=== PATIENT | male | born 1955 | race Two or more races ===

== ENCOUNTER 2021-08-22 06:47 | Day surgery (SDC) | payer OTHER | END 2021-08-22 12:35 | disposition home or self-care (01) | LOC: AMB-ENDOS 06:47 | PROVIDERS: ATTEND Colon & Rectal Surgery | DX: D37.4 Neoplasm of uncertain behavior of colon (principal); D12.2 Benign neoplasm of ascending colon; I10 Essential (primary) hypertension; Z20.822 Contact with and (suspected) exposure to COVID-19 ==

== ENCOUNTER 2023-04-28 08:00 | Outpatient (CLI) | payer OTHER ==
[~2023-04-28] VITALS: Ht 180.3 cm; Wt 98.0 kg
[2023-04-28] MEDS ORDERED: AMLODIPINE BESYL5 MG PO (08:16)
[2023-04-28] MEDS ORDERED: PLAVIX75 MG PO (08:17)
[2023-04-28] MEDS ORDERED: CHILDREN'S ASPI81 MG PO (08:17)
[2023-04-28] MEDS ORDERED: ATACAND HCT 161 EACH PO (08:17)
[2023-04-28 08:39] LABS: HEMATOCRIT 43.1 % (39.0-48.0); HEMOGLOBIN 14.9 g/dL (13-16.00); MEAN CELL VOLUME 85.3 fL (80.0-100.00); MEAN CORPUSCULAR HEMOGLOBIN 29.5 pg (27.00-32.0); MEAN CORPUSCULAR HGB CONC 34.5 g/dl (32.0-36.0); PLATELET COUNT 234 K/uL (150-450); RED BLOOD COUNT 5.05 M/uL (4.00-6.00); RED CELL DISTRIBUTION WIDTH 14.2 % (11.5-14.5)
[2023-04-28 08:40] LABS: URINE APPEARANCE Clear; URINE BILIRRUBIN Negative (NEGATIVE); URINE BLOOD Negative; URINE COLOR Yellow; URINE GLUCOSE Negative (NEGATIVE); URINE LEUKOCYTE Negative; URINE NITRATE Negative; URINE PROTEIN Negative (NEGATIVE); URINE UROBILINOGEN 0.2 E.U./dl
[2023-04-28 08:45] LABS: URINE BACTERIA 21.4 uL (0.0-1933); URINE EPITHELIAL CELLS 1.5 uL (0.0-38.8); URINE WBC 6.7 uL (0.0-23.2)
[2023-04-28 08:49] LABS: URINE RBC 1.1 uL (0.0-20.8)
[2023-04-28 09:02] LABS: INR 0.94; PARTIAL THROMBOPLASTIN TIME 26.4 SECONDS (22.0-34.0); PROTHROMBIN TIME 9.9 SECONDS (9.0-11.5)
[2023-04-28 09:12] LABS: ALBUMIN 3.7 gm/dL (3.4-5.0); BILIRUBIN TOTAL 0.36 mg/dL (0.3-1.2); CALCIUM 8.8 mg/dL (8.5-10.1); CREATININE SERUM 1.14 mg/dL (0.70-1.30); GFR 64.07; GLOBULINA 3.4 G/DL (2.4-3.5); POTASSIUM 4.12 mEq/L (3.5-5.1); TOTAL PROTEIN 7.1 gm/dL (6.4-8.2)
== END 2023-04-28 08:05 | disposition home or self-care (01) ==
LOC: LAB 08:00 → EDSTATUS 05-02 07:45 → SURG 05-02 07:45
PROVIDERS: ATTEND Colon & Rectal Surgery
DX: K63.5 Polyp of colon (principal); R59.0 Localized enlarged lymph nodes

== ENCOUNTER 2024-07-28 10:06 | Day surgery (SDC) | payer OTHER ==
[~2024-07-28 10:06] MED LIST: AMLODIPINE BESYL5 MG PO; ATACAND HCT 161 EACH PO; CHILDREN'S ASPI81 MG PO; PLAVIX75 MG PO
[2024-07-28] MEDS ORDERED: fentaNYL CITRATE 50 MCG/ML AMPUL IV PUSH ONE (14:45)
[2024-07-28] MEDS ORDERED: MIDAZOLAM HCL 2 MG/2 ML VIAL IV ONE (14:45)
[2024-07-28] MEDS ORDERED: DIPHENHYDRAMINE HCL 50 MG/ML VIAL 1ML IV ONE (14:45)
[2024-07-28] MEDS ORDERED: ONDANSETRON HCL 2 MG/ML VIAL IV ONE (14:45)
== END 2024-07-28 16:50 | disposition home or self-care (01) ==
LOC: AMB-ENDOS 10:06
PROVIDERS: ATTEND Colon & Rectal Surgery
DX: D37.4 Neoplasm of uncertain behavior of colon (principal); K63.5 Polyp of colon; R19.4 Change in bowel habit; K57.30 Diverticulosis of large intestine without perforation or abscess without bleeding

== ENCOUNTER 2024-09-23 09:30 | Inpatient (IN) | payer OTHER ==
[~2024-09-23] VITALS: Ht 180.3 cm; Wt 108.9 kg
[2024-09-23 09:29] VITALS: BP 132/75
[~2024-09-23 09:30] MED LIST changes: +CRESTOR40 MG
[2024-09-23 09:40] LABS: PH,URINE 5.5 (5.0-8.0); URINE APPEARANCE Clear; URINE BILIRRUBIN Negative (NEGATIVE); URINE BLOOD Negative; URINE COLOR Yellow; URINE GLUCOSE Negative (NEGATIVE); URINE KETONE Trace (NEGATIVE); URINE LEUKOCYTE Negative; URINE NITRATE Negative; URINE PROTEIN Negative (NEGATIVE)
[2024-09-23 09:44] LABS: URINE BACTERIA 7.3 uL (0.0-1933); URINE RBC 5.5 uL (0.0-20.8); URINE WBC 5.6 uL (0.0-23.2)
[2024-09-23 09:45] LABS: BASO % 0.2 % (0.1-1.2); EOS % 2.4 % (0.7-7.0); HEMATOCRIT 42.2 % (40.1-51.0); HEMOGLOBIN 14.3 g/dL (13.7-17.5); LYMPH # 2.44 (1.18-3.74); LYMPH % 29.5 % (19.3-53.1); MEAN CORPUSCULAR HEMOGLOBIN 28.7 pg (25.6-32.2); NEUT # 5.09 (1.56-6.13); NEUT % 61.7 % (34.0-71.1); PLATELET COUNT 229 K/uL (163-369); RED BLOOD COUNT 4.99 M/uL (4.63-6.08); RED CELL DISTRIBUTION WIDTH 13.4 % (11.6-14.4)
[2024-09-23 10:02] LABS: URINE CAST 0.14 uL (0.0-1.40); URINE EPITHELIAL CELLS 1.1 uL (0.0-38.8)
[2024-09-23 10:03] LABS: INR 0.96; PARTIAL THROMBOPLASTIN TIME 25.1 SECONDS (22.0-34.0); PROTHROMBIN TIME 10.5 SECONDS (9.0-11.5)
[2024-09-23 10:45] LABS: ALBUMIN 3.6 gm/dL (3.4-5.0); BILIRUBIN TOTAL 0.47 mg/dL (0.3-1.2); CALCIUM 8.6 mg/dL (8.5-10.1); CREATININE SERUM 1.09 mg/dL (0.70-1.30); GFR 67.27; GLOBULINA 3.3 G/DL (2.4-3.5); POTASSIUM 4.1 mEq/L (3.5-5.1); TOTAL PROTEIN 6.9 gm/dL (6.4-8.2)
[2024-09-23 11:33] LABS: RH POSITIVE
[2024-09-27] MEDS ORDERED: CEFTRIAXONE SODIUM 2,000 MG VIAL ONE (08:47)
[2024-09-27] MEDS ORDERED: METRONIDAZOLE/SODIUM CHLORIDE 500 MG/100 ML PIGGYBACK IV ONE (08:48)
[2024-09-27] MEDS ORDERED: BACITRACIN 15 GM OINT.TUBE TOP ONE (14:59)
[2024-09-27] MEDS ORDERED: SUGAMMADEX SODIUM 200 MG/2 ML VIAL IV ONE (15:25)
[2024-09-27] MEDS ORDERED: RINGERS SOLUTION,LACTATED 1,000 ML IV SCH (15:45)
[2024-09-27] MEDS ORDERED: ONDANSETRON HCL 2 MG/ML VIAL IV PRN (15:45)
[2024-09-27] MEDS ORDERED: OxyCODONE HCL 5 MG TABLET (ROXICODONE) PO PRN (15:45)
[2024-09-27] MEDS ORDERED: MORPHINE SULFATE 4 MG/ML VIAL IV PRN (15:45)
[2024-09-27] MEDS ORDERED: POLYETHYLENE GLYCOL 3350 17 GM BLIST.PACK PO SCH (17:00)
[2024-09-27] MEDS ORDERED: GABAPENTIN 300 MG CAPSULE PO SCH (17:00)
[2024-09-27] MEDS ORDERED: SIMETHICONE 125 MG CAPSULE PO SCH (17:00)
[2024-09-27] MEDS ORDERED: ACETAMINOPHEN 500 MG GEL..CAP PO SCH (18:00)
[2024-09-27] MEDS ORDERED: hydrALAZINE HCL 20 MG VIAL ONE (18:48)
[2024-09-27] MEDS ORDERED: hydrALAZINE HCL 20 MG VIAL IV PRN (19:00)
[2024-09-27] MEDS ORDERED: SIMETHICONE 125 MG CAPSULE PO ONE (19:24)
[2024-09-27] MEDS ORDERED: GABAPENTIN 300 MG CAPSULE PO ONE (19:24)
[2024-09-27] MEDS ORDERED: FAMOTIDINE/PF 20 MG/2 ML VIAL ONE (19:24)
[2024-09-27 20:09] LABS: BASO % 0.1 % (0.1-1.2); HEMATOCRIT 40.1 % (40.1-51.0); HEMOGLOBIN 13.8 g/dL (13.7-17.5); LYMPH # 0.57 (1.18-3.74); LYMPH % 4.9 % (19.3-53.1); MEAN CORPUSCULAR HEMOGLOBIN 29.1 pg (25.6-32.2); MONO # 0.39 (0.24-0.82); MONO % 3.3 % (4.7-12.5); NEUT # 10.65 (1.56-6.13); NEUT % 91.4 % (34.0-71.1); PLATELET COUNT 208 K/uL (163-369); RED BLOOD COUNT 4.75 M/uL (4.63-6.08); RED CELL DISTRIBUTION WIDTH 13.3 % (11.6-14.4)
[2024-09-27 20:31] LABS: ALBUMIN 3.6 gm/dL (3.4-5.0); CALCIUM 8.6 mg/dL (8.5-10.1); CREATININE SERUM 1.14 mg/dL (0.70-1.30); GFR 63.88; MAGNESIUM 1.8 mg/dL (1.8-2.4); POTASSIUM 3.92 mEq/L (3.5-5.1)
[2024-09-27] MEDS ORDERED: FAMOTIDINE/PF 20 MG/10 ML SYRINGE IV PUSH SCH (21:00)
[2024-09-27 22:00] VITALS: BP 148/67; O2SAT 89
[2024-09-28] VITALS: BP 136/72; O2SAT 96
[2024-09-28 06:50] LABS: BASO % 0.2 % (0.1-1.2); EOS # 0.01 (0.04-0.54); EOS % 0.1 % (0.7-7.0); HEMATOCRIT 40.8 % (40.1-51.0); HEMOGLOBIN 13.9 g/dL (13.7-17.5); LYMPH # 0.93 (1.18-3.74); LYMPH % 8.4 % (19.3-53.1); MEAN CORPUSCULAR HEMOGLOBIN 29.2 pg (25.6-32.2); MONO # 0.52 (0.24-0.82); MONO % 4.7 % (4.7-12.5); NEUT # 9.49 (1.56-6.13); NEUT % 86.2 % (34.0-71.1); PLATELET COUNT 230 K/uL (163-369); RED BLOOD COUNT 4.76 M/uL (4.63-6.08); RED CELL DISTRIBUTION WIDTH 13.5 % (11.6-14.4)
[2024-09-28 07:11] LABS: ALBUMIN 3.2 gm/dL (3.4-5.0); CALCIUM 8.3 mg/dL (8.5-10.1); CREATININE SERUM 0.99 mg/dL (0.70-1.30); GFR 75.17; MAGNESIUM 1.9 mg/dL (1.8-2.4); PHOSPHOROUS 3.9 mg/dL (2.5-4.9); POTASSIUM 4.39 mEq/L (3.5-5.1)
[2024-09-28 08:37] VITALS: BP 142/65; O2SAT 98
[2024-09-28] MEDS ORDERED: TAMSULOSIN HCL 0.4 MG CAP PO SCH (09:00)
[2024-09-28] MEDS ORDERED: CANDESARTAN CILEXETIL 16 MG TABLET PO SCH (09:00)
[2024-09-28] MEDS ORDERED: ROSUVASTATIN CALCIUM 10 MG TABLET PO SCH (09:00)
[2024-09-28] MEDS ORDERED: HYDROCHLOROTHIAZIDE 12.5 MG CAPSULE PO SCH (09:00)
[2024-09-28] MEDS ORDERED: AMLODIPINE BESYLATE 2.5 MG TABLET PO SCH (09:00)
[2024-09-28] MEDS ORDERED: FAMOTIDINE/PF 20 MG/2 ML VIAL IV PUSH SCH (09:00)
[2024-09-28] MEDS ORDERED: MAGNESIUM CHLORIDE 70 MG TABLET.DR PO SCH (09:00)
[2024-09-28] MEDS ORDERED: LACTOBACILLUS ACIDOPHILUS 1 CAP CAP PO SCH (09:00)
[2024-09-28] MEDS ORDERED: MORPHINE SULFATE 4 MG/ML VIAL IV STA (11:08)
[2024-09-28] MEDS ORDERED: CEFTRIAXONE SODIUM 2,000 MG VIAL IV ONE (14:30)
[2024-09-28] MEDS ORDERED: METRONIDAZOLE/SODIUM CHLORIDE 500 MG/100 ML PIGGYBACK IV ONE (14:45)
[2024-09-28] MEDS ORDERED: SUGAMMADEX SODIUM 200 MG/2 ML VIAL IV ONE (14:45)
[2024-09-28 16:11] VITALS: BP 110/66; BP 125/68; O2SAT 96; O2SAT 97
[2024-09-28] MEDS ORDERED: FAMOtidine 20 MG TABLET PO SCH (17:00)
[2024-09-28] MEDS ORDERED: ENOXAPARIN SODIUM 40 MG/0.4 ML SYRINGE SUBCUTANEO SCH (17:00)
[2024-09-29 00:16] VITALS: BP 136/71; O2SAT 100
[2024-09-29 07:30] LABS: BASO % 0.3 % (0.1-1.2); EOS # 0.07 (0.04-0.54); EOS % 0.7 % (0.7-7.0); HEMATOCRIT 37.6 % (40.1-51.0); HEMOGLOBIN 12.9 g/dL (13.7-17.5); LYMPH # 1.09 (1.18-3.74); LYMPH % 10.4 % (19.3-53.1); MEAN CORPUSCULAR HEMOGLOBIN 29.5 pg (25.6-32.2); MONO # 0.49 (0.24-0.82); MONO % 4.7 % (4.7-12.5); NEUT # 8.73 (1.56-6.13); NEUT % 83.6 % (34.0-71.1); PLATELET COUNT 205 K/uL (163-369); RED BLOOD COUNT 4.37 M/uL (4.63-6.08); RED CELL DISTRIBUTION WIDTH 13.5 % (11.6-14.4)
[2024-09-29 08:18] LABS: CALCIUM 8.1 mg/dL (8.5-10.1); CREATININE SERUM 0.87 mg/dL (0.70-1.30); GFR 87.26; MAGNESIUM 2.2 mg/dL (1.8-2.4); PHOSPHOROUS 2.5 mg/dL (2.5-4.9)
[2024-09-29 08:21] VITALS: BP 158/72; O2SAT 94
[2024-09-29] MEDS ORDERED: POTASSIUM PHOS,M-BASIC-D-BASIC 9 MM in 0.9 % SODIUM CHLORIDE 250 ML IV ONE (08:45)
[2024-09-29] MEDS ORDERED: NAPH,MB-DB/K PH,MBDB 1 PKT PACKET PO SCH (09:00)
[2024-09-29] MEDS ORDERED: HYOSCYAMINE SULFATE 0.125 MG TAB.SUBL SL STA (10:59)
[2024-09-29] MEDS ORDERED: POLYETHYLENE GLYCOL 3350 17 GM BLIST.PACK PO STA (10:59)
[2024-09-29] MEDS ORDERED: NAPH,MB-DB/K PH,MBDB 1 PKT PACKET PO STA (11:00)
== END 2024-09-29 14:46 | disposition home or self-care (01) | DRG 330 ==
LOC: O/R 09-27 08:27 → SURH 09-27 09:15 → SURG 09-27 16:49 → SURH 09-28 18:38 → SURG 09-28 19:03
PROVIDERS: ADMIT Colon & Rectal Surgery; ATTEND Colon & Rectal Surgery
PROC: 07BB4ZZ Excision of Mesenteric Lymphatic, Percutaneous Endoscopic Approach (ICD-10-PCS; 2024-09-27)
PROC: 0DNW4ZZ Release Peritoneum, Percutaneous Endoscopic Approach (ICD-10-PCS; 2024-09-27)
PROC: 0DTF4ZZ Resection of Right Large Intestine, Percutaneous Endoscopic Approach (ICD-10-PCS; principal; 2024-09-27 09:15)
DX: K63.5 Polyp of colon (principal); K56.690 Other partial intestinal obstruction; R59.0 Localized enlarged lymph nodes

== ENCOUNTER 2024-10-04 02:37 | Emergency (ER) | payer OTHER ==
[~2024-10-04] VITALS: Ht 180.3 cm; Wt 96.2 kg
[2024-10-04] MEDS ORDERED: MORPHINE SULFATE 4 MG/ML VIAL IV STA (04:03)
[2024-10-04] MEDS ORDERED: FAMOTIDINE/PF 20 MG/2 ML VIAL IV PUSH STA (04:03)
[2024-10-04] MEDS ORDERED: 0.9 % SODIUM CHLORIDE 1,000 ML IV ONE (04:15)
[2024-10-04 04:51] LABS: BASO % 0.3 % (0.1-1.2); EOS # 0.03 (0.04-0.54); EOS % 0.3 % (0.7-7.0); HEMATOCRIT 42.5 % (40.1-51.0); HEMOGLOBIN 14.5 g/dL (13.7-17.5); LYMPH # 1.25 (1.18-3.74); LYMPH % 11.6 % (19.3-53.1); MEAN CORPUSCULAR HEMOGLOBIN 28.7 pg (25.6-32.2); MONO # 0.42 (0.24-0.82); MONO % 3.9 % (4.7-12.5); NEUT # 9.06 (1.56-6.13); NEUT % 83.7 % (34.0-71.1); PLATELET COUNT 288 K/uL (163-369); RED BLOOD COUNT 5.06 M/uL (4.63-6.08); RED CELL DISTRIBUTION WIDTH 13.2 % (11.6-14.4)
[2024-10-04 05:16] LABS: ALBUMIN 3.5 gm/dL (3.4-5.0); ALKALINE PHOSPHATASE 69 U/L (50-136); ALT/SGPT 58 U/L (12-78); AMYLASE 67 U/L (25-115); ANION GAP 12 (10.0-20.0); AST/SGOT 22 U/L (15-37); BILIRUBIN TOTAL 0.31 mg/dL (0.3-1.2); BILIRUBIN,CONJUGATED < 0.10 mg/dL (0.0-0.2); BILIRUBIN,UNCONJUGATED 0.21 mg/dL (0.0-0.6); BLOOD UREA NITROGEN 17 mg/dL (7-18); BUN CREA RATIO 16 (7.0-25.0); CALCIUM 8.8 mg/dL (8.5-10.1); CARBON DIOXIDE 27 mEq/L (21-32); CHLORIDE 107 mmol/L (98-107); CREATININE SERUM 1.08 mg/dL (0.70-1.30); GFR 67.99; GLOBULINA 4.2 G/DL (2.4-3.5); GLUCOSE FASTING 161 mg/dL (65-100); LIPASE 40 U/L (13-75); OSMOLALITY SERUM 288 MOSM/KG (275-295); POTASSIUM 3.98 mEq/L (3.5-5.1); SODIUM 142 mmol/L (136-145); TOTAL PROTEIN 7.7 gm/dL (6.4-8.2)
[2024-10-04 06:47] LABS: URINE APPEARANCE Clear; URINE BILIRRUBIN Negative (NEGATIVE); URINE BLOOD Negative; URINE COLOR Yellow; URINE KETONE Negative (NEGATIVE); URINE LEUKOCYTE Negative; URINE NITRATE Negative; URINE PROTEIN 30 (NEGATIVE); URINE UROBILINOGEN 0.2 E.U./dl
[2024-10-04 06:48] LABS: URINE BACTERIA 7.3 uL (0.0-1933); URINE WBC 6.1 uL (0.0-23.2)
[2024-10-04 06:58] LABS: URINE EPITHELIAL CELLS 0.9 uL (0.0-38.8); URINE GLUCOSE 250 MG/DL (NEGATIVE)
[2024-10-04] MEDS ORDERED: ONDANSETRON HCL 2 MG/ML VIAL IV STA (07:33)
[2024-10-04] MEDS ORDERED: AMLODIPINE BESYLATE 5 MG TABLET PO STA (13:25)
[2024-10-04] MEDS ORDERED: PANTOPRAZOLE SODIUM 40 MG TABLET.DR PO STA (14:21)
[2024-10-04] MEDS ORDERED: KETOROLAC TROMETHAMINE 30 MG VIAL IV STA (14:22)
[2024-10-04] MEDS ORDERED: CANDESARTAN CILEXETIL 32 MG TABLET PO SCH (16:10)
[2024-10-04] MEDS ORDERED: ENALAPRILAT DIHYDRATE 1.25 MG/ML VIAL IV STA (16:10)
[2024-10-04] MEDS ORDERED: HYDROCHLOROTHIAZIDE 12.5 MG CAPSULE PO SCH (16:11)
[2024-10-04] MEDS ORDERED: TRAM1TAB98 PO (16:30)
[2024-10-04] MEDS ORDERED: LEVSIN/SL0.125 MG SL (16:32)
[2024-10-04] MEDS ORDERED: ZOFRAN8 MG PO (16:32)
[2024-10-04] MEDS ORDERED: COLACE100 MG PO (16:33)
[2024-10-04] MEDS ORDERED: PROTONIX40 MG PO (16:35)
[2024-10-04] MEDS ORDERED: AMLODIPINE BESYLATE 2.5 MG TABLET PO SCH (17:00)
== END 2024-10-04 18:07 | disposition home or self-care (01) ==
LOC: ER 03:04
PROVIDERS: General Practice
DX: K63.5 Polyp of colon (principal); R59.0 Localized enlarged lymph nodes; R10.13 Epigastric pain; K80.20 Calculus of gallbladder without cholecystitis without obstruction; R10.9 Unspecified abdominal pain; Z91.013 Allergy to seafood
CPT/HCPCS: 36415; 74022; 74177; 76700; 96365; 96366; 99284; J1885; J2270; J2405; J3490 ×2; J7030; Q9965